=== PATIENT | female | born 2000 | race Hispanic/Latino ===

== ENCOUNTER 2018-04-22 01:54 | Emergency (ER) | payer OTHER, SELFPAY ==
[2018-04-22 02:51] LABS: Bilirubin Negative (Negative); Blood, Urine Negative (Negative); Clarity CLEAR (Clear); Glucose, Urine (Dipstick) Negative (Negative); Leukocyte Small (Negative); Nitrite Negative (Negative); Protein, Urine (Dipstick) Negative (Neg-Trace); Specific Gravity, Urine 1.036 (1.002-1.036); Urobilinogen 0.2 mg/dL (0.2-1.0); pH, Urine 6.5 (5.0-9.0)
[2018-04-22 02:54] LABS: Bacteria/HPF None Seen HPF (None Seen); Hyaline Casts/LPF 0-3 HYALINE CAST LPF (0-3 Hyaline); Pathc Cast-AUWi Flag 0.14 (0-2.49); Squamous Epithelial 0-3 HPF (0-3); WBC/HPF 0-3 HPF (0-3)
[2018-04-22 03:52] LABS: Pregnancy Test - Urine (BHCG) Negative (Negative); Pregu Control Background? CLEAR/WHITE (CLR/WHITE); Pregu Control Bar Appear? YES (CONTROL BAR)
[2018-04-22] MEDS ORDERED: cefTRIAXone\\ROCEPHIN 250 MG VIAL ONE (03:52)
[2018-04-22] MEDS ORDERED: Azithromycin 250 MG TAB ONE (03:52)
[2018-04-22] MEDS ORDERED: Lidocaine 1% PF 5 ML VIAL ONE (03:52)
[2018-04-22 03:53] LABS: Specific Gravity 1.036 (1.002-1.036)
[2018-04-24 23:50] LABS: Chlamydia by PCR Not Detected (NotDetected); GC by PCR Not Detected (NotDetected)
== END 2018-04-22 04:23 | disposition home or self-care (01) ==
LOC: ERS 01:54
DX: N89.8 Other specified noninflammatory disorders of vagina (principal); F41.9 Anxiety disorder, unspecified
CPT/HCPCS: 81003; 81015; 81025; 87086; 87480; 87491; 87510; 87591; 87660; 96372; J0696; J2001

== ENCOUNTER 2020-11-09 13:10 | Emergency (ER) | payer OTHER | END 2020-11-09 17:28 | disposition home or self-care (01) | LOC: ERS 13:10 | DX: S09.90XA Unspecified injury of head, initial encounter (principal); F07.81 Postconcussional syndrome; W22.8XXA Striking against or struck by other objects, initial encounter | CPT/HCPCS: 70450 ==

== ENCOUNTER 2021-01-30 14:59 | Emergency (ER) | payer SELFPAY ==
[2021-01-31 03:45] LABS: SARS-CoV-2 PCR by NAA Not Detected (NotDetected)
== END 2021-01-30 16:30 | disposition home or self-care (01) ==
LOC: ERS 14:59
DX: Z20.822 Contact with and (suspected) exposure to COVID-19 (principal)
CPT/HCPCS: 87081; 87430; 99283; U0003; U0005

== ENCOUNTER 2022-07-30 13:48 | Outpatient (CLI) | payer BC | END 2022-07-30 13:49 | disposition home or self-care (01) | LOC: BICULT 13:48 | PROVIDERS: ATTEND Nurse Practitioner Women's Health | DX: R10.2 Pelvic and perineal pain (principal) | CPT/HCPCS: 76856 ==